=== PATIENT | female | born 1985 | race Caucasian/White ===

== ENCOUNTER → 2018-07-18 13:46 | Outpatient (CLI) | payer MEDICAID | END | disposition home or self-care (01) | LOC: D.LDO 13:46 | DX: O24.419 Gestational diabetes mellitus in pregnancy, unspecified control (principal); Z3A.35 35 weeks gestation of pregnancy ==

== ENCOUNTER → 2018-07-25 11:01 | Outpatient (CLI) | payer OTHER ==
[~2018-07-25 11:01] MED LIST: MOTRIN600 MG PO; PERCOCET 5/3251 TA1 PO; PRENATAL COMPLE1 TAB PO
== END | disposition home or self-care (01) ==
LOC: D.LDO 11:01
PROVIDERS: ATTEND Obstetrics & Gynecology
DX: O24.119 Pre-existing type 2 diabetes mellitus, in pregnancy, unspecified trimester (principal); Z3A.36 36 weeks gestation of pregnancy

== ENCOUNTER → 2018-08-01 12:41 | Outpatient (CLI) | payer OTHER | END | disposition home or self-care (01) | LOC: D.LDO 12:41 | PROVIDERS: ATTEND Obstetrics & Gynecology | DX: O26.893 Other specified pregnancy related conditions, third trimester (principal); Z3A.37 37 weeks gestation of pregnancy ==

== ENCOUNTER 2018-08-08 15:10 | Inpatient (IN) | payer OTHER ==
[~2018-08-08] VITALS: Ht 165.1 cm; Wt 92.5 kg
[2018-08-13 09:09] LABS: HEMATOCRIT 36.8 % (36.0-48.0); HEMOGLOBIN 12.7 g/dL (12-16); MCH 30.8 pg (26.0-34.0); MCHC 34.5 g/dL (31.0-37.0); MCV 89.1 fL (80.0-100.0); MEAN PLATELET VOLUME 9.8 fL (7.4-10.4); RBC 4.13 10x6/uL (4.00-5.40); RDW 13.5 % (11.5-14.5); WBC 12.7 10x3/uL (4.8-10.8)
[2018-08-13 09:18] LABS: APPEARANCE CLEAR (CLEAR); BILIRUBIN NEGATIVE (NEGATIVE); COLOR YELLOW (YELLOW); GLUCOSE NEGATIVE (NEGATIVE); KETONE NEGATIVE (NEGATIVE); NITRITE NEGATIVE (NEGATIVE); PROTEIN NEGATIVE (NEGATIVE); UROBILINOGEN NORMAL (NORMAL)
[2018-08-13] MEDS ORDERED: CLEOCIN HCL150 MG PO (09:18)
[2018-08-13] MEDS ORDERED: GLUCOPHAGE500 MG PO (09:19)
[2018-08-13 09:20] VITALS: BP 130/68; Ht 165.1 cm; Wt 92.5 kg
--- NOTE | 2018-08-13 14:31 | NUR ---
1426 VIABLE BABY BOY DELIVERED CORD BLOOD DONE AND TAKEN OUT, GINNY.
--- NOTE | 2018-08-13 15:56 | NUR ---
FUNDUS IS FIRM, MIDLINE 1-U. AMANDA PAD WITH MODERATE RUBRA LOCHIA NOTED, NO CLOTS PRESENT. WILL CONTINUE TO MONITOR.
[2018-08-13 17:00] VITALS: BP 126/57
--- NOTE | 2018-08-13 17:00 | NUR ---
REC'D PT BACK FROM RECOVERY POSTOP REPEAT . REPORT REC'D FROM RECOVERY NURSE AUREA NDIAYE. PT AA&O X 4. PAIN AND NEEDS ASSESSED. PT REPORTS ABD CRAMPING AND TENDERNESS THAT SHE RATES 6/1O. PLANS TO MEDICATE. PT HAS PIV TO RT WRIST W/18GAUGE. NS W/20 UNITS PITOCIN INFUSING VIA GRAVITY AT SLOW RATE. FLUID PLACED ON PUMP TO INFUSE AT 125ML/HR. ABD SOFT, NON DISTENDED, FUNDUS FIRM,U/1,MIDLINE. PINK PAD AND CHUX W/MODERATE TO LARGE LOCHIA NOTED FROM RECOVERY PERIOD. PINK PAD AND CHUX CHANGED. CURRENT PERIPAD W/MODERATE LOCHIA NOTED. PERICARE DONE AND CLEAN PADS PLACED. SCD WRAPS IN PLACE. CONNECTED TO PUMP. PUMP TURNED ON AND FUNCTIONING. CONTINUE POC DISCUSSED. PT VERBALIZES UNDERSTANDING AND AGREEABLE.
--- NOTE | 2018-08-13 17:04 | NUR ---
TORADOL 30MG SIVP GIVEN. CLEAN GOWN PLACED ON PT.
--- NOTE | 2018-08-13 17:15 | NUR ---
FUNDUS FIRM,U/1, SMALL RUBRA LOCHIA NOTED.ICE CAP TO ABD. SIG OTHER AT BEDSIDE. PT DENIES NEEDS.
--- NOTE | 2018-08-13 17:30 | NUR ---
FUNDUS FIRM,U/1,SMALL LOCHIA NOTED. NO PERIPAD CHANGE AT THIS TIME.
--- NOTE | 2018-08-13 18:00 | NUR ---
ADDITIONAL POST OP VITALS LOST DUE TO VITAL MACHINE NOT RETAINING RECORDINGS.
--- NOTE | 2018-08-13 18:00 | NUR ---
ROUNDS MADE. PAIN REASSESSED. PT REPORTS PAIN IS 4/10. FUNDUS FIRM,U/1,SMALL LOCHIA NOTED.
--- NOTE | 2018-08-13 18:54 | NUR ---
ROUNDS MADE. PT AA&O X4. PAIN AND NEEDS ASSESSED. PT REPORTS PAIN IS NOW 710. PAIN MEDICATION OFFERED. PT ACCEPTS, REQUEST ONLY 1MG AT THIS TIME. 1MG SIVP GIVEN. FUNDUS FIRM, U/1,SMALL LOCHIA NOTED. NO PERIPAD CHANGE AT THIS TIME.
--- NOTE | 2018-08-13 19:15 | NUR ---
REPORT GIVEN TO Nav RUIZ RN.
--- NOTE | 2018-08-13 19:45 | NUR ---
PM ROUNDS MADE, PT HOLDING , VISITING WITH FOB, INFORMED PT THAT I WILL RETURN SHORTLY TO DO ASSESSMENT, PT VERBALIZES UNDERSTANDING, DENIES NEEDS AT THIS TIME
[2018-08-13 20:10] VITALS: BP 118/53
--- NOTE | 2018-08-13 20:15 | NUR ---
ASSESSMENT PER FLOW SHEET, VS OBTAINED PER WALLY MONIQUE RN, IV IN RIGHT WRIST INTACT WITH NO REDNESS OR EDEMA INFUSINF NS WITH PITOCIN AT 125 ML/HR, FF, ML, U/1, MOD BLEEDING NOTED WITH NO CLOTS, AMANDA CARE DONE WITH WET WARM WASH CLOTHS, BLUE CHUX AND AMANDA PAD CHANGED, AURS[employer]IN[employer] INC WITH LARGE DRESSING CDI WITH NO DRAINAGE NOTED, FRESH ICE PACK TO ABD, NAZARIO CATH INTACT DRAINING DARK YELLOW URINE, PT ENC TO DRINK PLENTY OF FLUIDS, PT REPORTS "A LITTLE" FLATUS, SCD'S ON AND WORKING PROPERLY, DINNER TRAY REMOVED, DENIES NEEDS AT THIS TIME, FOB HOLDING INFANT AT THIS TIME
--- NOTE | 2018-08-13 21:05 | NUR ---
PT RESTING, FOB TAKES TO NSY VIA OPEN CRIB CART, PT DENIES NEEDS AT THIS TIME
--- NOTE | 2018-08-13 22:30 | NUR ---
PT HOLDING INFANT, C/O INC PAIN AND CRAMPING, INFORMED PT THAT I WILL BE BACK IN AROUND 2300 TO ADM TORADOL AND PAIN MED, PT VERBALIZES UNDERSTANDING, DENIES FURTHER NEEDS AT THIS TIME, FOB AT BEDSIDE
--- NOTE | 2018-08-13 23:17 | NUR ---
ADM TORADOL AND DILAUDID PER MD ORDERS, SEE EMAR, VS OBTAINED, AMANDA CARE DONE WITH WET WARM WASH CLOTHS, LITE BLEEDING NOTED WITH NO CLOTS, BLUE CHUX AND AMANDA PAD CHANGED, FRESH ICE PACK TO ABD, NAZARIO CATH EMPTIED, SCD'S CONTINUE ON AND WORKING PROPERLY, PT DENIES FURTHER NEEDS, FOB AND AT BEDSIDE
--- NOTE | 2018-08-13 23:31 | NUR ---
ADM MYLICON PER MD ORDERS, SEE EMAR
--- NOTE | 2018-08-14 00:32 | NUR ---
PT RESTING, RATES INC PAIN AND CRAMPING 3/, DENIES NEEDS AT THIS TIME, INFANT IN OPEN CRIB CART AND FOB AT BEDSIDE
--- NOTE | 2018-08-14 01:36 | NUR ---
PT RESTING, DENIES NEEDS AT THIS TIME, INFANT AND FOB AT BEDSIDE
--- NOTE | 2018-08-14 03:24 | NUR ---
FOB AT [employer] DEVELOPER ANALYST, REQUESTED AND PROVIDED INFANT HAT, PT RESTING, DENIES NEEDS AT THIS TIME, NSY NURSE IN ROOM AT THIS TIME
--- NOTE | 2018-08-14 04:34 | NUR ---
DILAUDID 2MG SLOW IVP PER PT REQUEST FOR 810 ABDOMINAL PAIN. SEE EMAR.
[2018-08-14 06:08] VITALS: BP 104/56
--- NOTE | 2018-08-14 06:08 | NUR ---
PT AWAKE, ADM TORADOL PER MD ORDERS, SEE EMAR, VS OBTAINED, I&O'S COLLECTED, AMANDA CARE DONE WITH WET WARM WASH CLOTHS, LITE-MOD BLEEDING NOTED WITH NO CLOTS, BLUE CHUX AND AMANDA PAD CHANGED, FRESH ICE PACK TO ABD, PT DENIES FURTHER NEEDS, FOB HOLDING
--- NOTE | 2018-08-14 06:45 | NUR ---
PT RESTING WITH EYES CLOSED, RESP QUIET, NO DISTRESS NOTED, LEFT UNDISTURBED AT THIS TIME, AND FOB IN ROOM
--- NOTE | 2018-08-14 07:00 | NUR ---
SHIFT REPORT TO DAY SHIFT
[2018-08-14 07:15] LABS: BASOPHILS 0.1 % (0-2); EOSINOPHILS 0.5 % (0-7); IMMATURE GRANULOCYTES 0.4 % (0-5); LYMPHOCYTES 16.3 % (15-50); MCH 30.6 pg (26.0-34.0); MCV 89.9 fL (80.0-100.0); MEAN PLATELET VOLUME 9.8 fL (7.4-10.4); MONOCYTES 9.8 % (2-11); NEUTROPHILS 72.9 % (40-80); PLATELET COUNT 230 10x3/uL (130-400); RDW 13.5 % (11.5-14.5); WBC 10.1 10x3/uL (4.8-10.8)
[2018-08-14 07:18] LABS: RAPID PLASMA REAGIN Non Reactive (Non Reactive)
[2018-08-14 07:19] LABS: HEMATOCRIT 29.4 % (36.0-48.0); RBC 3.27 10x6/uL (4.00-5.40)
--- NOTE | 2018-08-14 07:35 | NUR ---
dr. house to pts room, rounds made.
[2018-08-14 08:29] VITALS: BP 102/50
--- NOTE | 2018-08-14 08:30 | NUR ---
assessment completed. see flowsheet.
--- NOTE | 2018-08-14 08:35 | NUR ---
stephenson cath dc'd intact with 800 ml's yellow urine out. pericare done with warm wet washcloths, peripad/panties on. scd's removed. iv saline locked. medication adm record reviewed with pt. see emar for all meds adm by this rn. ice water served to pt. pt has regular breakfast tray. srup x2, cl/phone within reach. pt denies all other needs at this time.
--- NOTE | 2018-08-14 10:55 | OP ---
PATIENT NAME: WALLY JEFFERSON MEDICAL RECORD: [id number] :87 LOCATION:[id number] ADMISSION DATE:08/13/18 SURGEON: COLT ALMENDAREZ MD DATE OF OPERATION: 08/13/2018 PREOPERATIVE DIAGNOSES: 1. at 39 weeks. 2. History of prior section. 3. Unwanted fertility. POSTDELIVERY DIAGNOSES: 1. Mother delivered at 39 weeks. 2. History of prior section. 3. Unwanted fertility. PROCEDURES: 1. Repeat low transverse section. 2. tubal ligation using [place] technique. SURGEON: Colt Almendarez MD OIL WELL PERFORATOR OPERATOR: Monet Lomax ANESTHESIOLOGIST: Nick Oliveira MD ANESTHETIC: Spinal. FINDINGS: Viable male infant, vertex presentation, Apgars 9 and 9, weight 7 pounds 14 ounces. Unremarkable uterus, tubes, and ovaries bilaterally. SPECIMENS REMOVED: Placenta and tubes. SPECIMEN DISPOSITION: Tubes to pathology. Placenta discarded. ESTIMATED BLOOD LOSS: 700 cc. FLUIDS: 1300 cc of lactated Ringer's. URINE OUTPUT: 300 cc of clear urine. COMPLICATIONS: None. DRAINS: Hilton to gravity. INDICATIONS: The patient is a 32-year-old multiparous female with unwanted fertility. The patient has had a prior section and desires repeat. DESCRIPTION OF PROCEDURE: After informed consent was assured, the patient was taken to the operating room, where anesthetic was obtained. The patient was prepped and draped. After assessment of the anesthetic and found it to be adequate, an incision was made over the old scar and carried down to the underlying layer of the fascia, which was opened in the midline and the incision was extended out laterally. Rectus bellies were dissected free superiorly and inferiorly and then in the midline. The peritoneum was entered sharply and the peritoneal opening was extended with good visualization of the OPERATIVE REPORT [id number] WALLY JEFFERSON bladder. DeLee all-purpose retractor was inserted and a low transverse hysterotomy was performed. was delivered onto the abdomen atraumatically. The cord was doubly clamped and cut, and the infant was passed to the attendants. Cord blood sample was obtained and the placenta was delivered via Crede maneuver. Uterus was exteriorized, cleared of all clot and debris. Uterus was now closed with a running locked stitch of chromic. After this had been performed, posterior cul-de-sac was irrigated and irrigant was removed. Right tube was elevated. A window was developed on the antimesenteric portion and 2 ligatures were passed through this opening. They are secured proximally and distally and the intervening segment of tube was excised. The ostia was cauterized. This was repeated on the contralateral side. Again, a window was developed and 2 ligatures were passed through here. The ligatures were secured proximally and distally, and the intervening segment of tube was removed. The ostia was cauterized. The uterus was returned to the abdomen. Using a Ordonez retractor, the abdominal wall was elevated and both right and left tubal stumps were visualized with good hemostasis. Reinspection of the hysterotomy revealed adequate hemostasis. Rectus bellies were reapproximated in the midline with loose interrupted stitch of chromic. Fascia was closed with looped PDS. Subcutaneous tissue was irrigated. Bleeding vessel was cauterized and skin was reapproximated with a subcuticular stitch. Sterile dressing was applied. Sponge, lap, and needle counts were correct times 2. TRANSINT:[id number] Voice Confirmation ID: [id number] DOCUMENT ID: [id number] COLT ALMENDAREZ MD at 1055 CC: [id number] DICTATION DATE: 08/13/18 1505 COMPUTER CLERK: 08/13/18 1647 ADM IN [facility] [address] [id number]
--- NOTE | 2018-08-14 12:15 | NUR ---
pt wishes to get up to shower. assisted pt up, gait slow but steady. clean linens provided for shower. bed linens changed. pt has voided 800 mls into [place] hat. pt to shower now.
--- NOTE | 2018-08-14 12:45 | NUR ---
pt requests pain medication, see emar for all meds adm by this rn. pt is sitting up in bedside chair to eat lunch. pt's family at bedside.
--- NOTE | 2018-08-14 12:50 | NUR ---
warm blanket provided to neck/shoulders for comfort.
--- NOTE | 2018-08-14 13:46 | NUR ---
pt ambulatory in hallway, to nurses desk. pt continues to c/o neck pain and tightness, rating as 6/10, states "it feels like it is tight and throbbing, on both sides". pt requests more pain medication, message left for miguelito from [facility] to return my call.
--- NOTE | 2018-08-14 14:15 | NUR ---
dr. house calls to unit, report given to md of pt's c/o neck pain and tightness, and medications adm percocet 10 mg po at 1245. telephone order received to adm flexeril 10 mg po.
--- NOTE | 2018-08-14 15:00 | NUR ---
pt ambulatory to bathroom, voids 400 mls urine in [facility], with small amount of bright red bleeding noted in [facility]. pt denies heavy bleeding.
--- NOTE | 2018-08-14 16:21 | NUR ---
pt requests pain medication, see emar for meds adm. fresh ice pack placed over gown to incision. pt states "i can feel the muscle relaxer kicking in", my head is hurting, it's a little better, but when i walk, it feels a little better. srup x2, cl/phone within reach. family at bedside.
[2018-08-14 16:45] VITALS: BP 132/64
--- NOTE | 2018-08-14 16:45 | NUR ---
pt's family member to desk, states "we need your help in the room". to pt's bedside, and pt is sitting up on the side of bed, panicked, states "i am hurting, and don't know why, i feel like something is wrong". vital signs taken, bp 132/64, p97, o2 sat 99% room air, r 20, temp 98.6. pt states pain is in incisional area. pt to supine position for assessment. abdomen palpates soft, bladder non distended. lung sounds clear bilaterally. bowels sounds present x4. pt denies sob, nausea, or difficulty breathing. dressing removed from incision, which is intact, with steristrips in place, with scant amount of dark red blood, dry to middle of incision. as pt has been resting in supine position for 10 minutes, hob raised to 20 degrees. pt states "ok, i am starting to feel better now". pt states "it hurt when i got up to the bathroom, and it really started to hurt when i walked back to the bed. family members remain at bedside and request phone call be made to dr. house. phone call made to dr. house's cell, no answer. will attempt to call back, as emi from states "he is in a surgical case". pt stable at this time. srup x2, call light and phone within reach.
--- NOTE | 2018-08-14 19:04 | NUR ---
report given to rishi brown rn.
--- NOTE | 2018-08-14 19:22 | NUR ---
HARSHAD ASHTON RN IN ROOM TO ADM LAST DOSE OF TORADOL SIVP, SEE EMAR
--- NOTE | 2018-08-14 19:25 | NUR ---
SPOKE TO DR ALMENDAREZ, ORDERS TO CHANGE TORADOL IV TO MOTRIN 800MG Q8H, ORDERS READ BACK AND VERIFIED
[2018-08-14 20:15] VITALS: BP 115/59
--- NOTE | 2018-08-14 20:15 | NUR ---
ASSESSMENT PER FLOW SHEET, JOSE JUAN ULLOA, RN WAS IN ROOM ASSISTING PT TO BR AND BACK TO BED, SHE INFORMS ME THAT DEBBIE TONG RN IS TO TALK TO DR ALMENDAREZ ABOUT PT'S PAIN MED, PT VERBALIZES UNDERSTANDING, VS OBTAINED, FF, ML, U/2, PT REPORTS LITE-MOD BLEEDING WITH NO CLOTS AT THIS TIME, BIKINI INC WITH DERMABOND CDI WITH NO DRAINAGE NOTED, AMANDA PAD OVER INC FOR COMFORT AND MOISTURE CONTROL, PT DENIES FLATUS, NO BM AND VOIDING WITH NO DIFFICULTY, PT ENC TO AMB IN [place], INFORMED PT THAT I WILL ADM PAIN MED SOON WE RECEIVE A NEW ORDER FOR IT, PT VERBALIZES UNDERSTANDING, DENIES NEEDS, FEMALE FAMILY MEMBER HOLDING , FOB AND OTHER FAMILY IN ROOM
--- NOTE | 2018-08-14 20:50 | NUR ---
DR. ALMENDAREZ ON L&D AND INFORMED THAT PT. WAS COMPLAINING THAT PAIN WAS NOT CONTROL WITH PRESENT ORAL MED. STATES DILAUDID HAD WORKED BETTER FOR HER. MD STATES HE WILL ENTER ORDER.
--- NOTE | 2018-08-14 21:00 | NUR ---
INFORMED PT THAT DEBBIE TONG, RN SPOKE TO DR ALMENDAREZ ABOUT PAIN MED, AND SOON DR ALMENDAREZ PUTS ORDER IN, I WILL ADM IT, PT VERBALIZES UNDERSTANDING, PT HOLDING HOLDING INFANT, FOB AT BEDSIDE
--- NOTE | 2018-08-14 21:31 | NUR ---
PT CONTINUES HOLDING , ADM DILAUDID PO PER MD ORDERS, SEE EMAR, PT DENIES FURTHER NEEDS, FOB AT BEDSIDE, TRASH REMOVED
--- NOTE | 2018-08-14 22:22 | NUR ---
PT SITTING UP IN CHAIR, HOLDING , REPORTS PAIN IS STILL THE SAME, BUT STATES "I FEEL LIKE IT IS GETTING BETTER", PT DENIES NEEDS AT THIS TIME, FOB IN ROOM
--- NOTE | 2018-08-14 22:45 | NUR ---
DR ALMENDAREZ ON L&D UNIT, VERBAL ORDER FOR VS ORDERS CHANGED TO Q8H
--- NOTE | 2018-08-15 00:25 | NUR ---
ROUNDS MADE, PT GETTING READY TO GET UP TO BR, INFORMED PT THAT I WILL BRING PAIN MED WHEN DUE, PT VERBALIZES UNDERSTANDING, FOB ASSISTING PT, INFANT IN OPEN CRIB CART
--- NOTE | 2018-08-15 00:35 | NUR ---
ANASTASIIA SMITH RN TAKING OVER CARE OF PT, REPORT PROVIDED, THIS RN AND ANASTASIIA SMITH RN TO ROOM, PT INFORMED THAT ANASTASIIA SMITH RN WILL BE HER NURSE FOR THE REST OF THE EVENING
--- NOTE | 2018-08-15 03:20 | NUR ---
pt medicated for gas at thsi time. vamsi trejo rn
--- NOTE | 2018-08-15 07:11 | NUR ---
THIS RN AND Nav SMITH RN TO BEDSIDE FOR BEDSIDE SHIFT REPORT. PT AA&O X 4 SITTING UP IN CHAIR. PAIN AND NEEDS ASSESSED. PT REPORTS PAIN 3-4/10. DENIES NEEDING ADDITIONAL PAIN INTERVENTIONS AT THIS TIME. BREAKFAST TRAY AT BEDSIDE. PT INSTRUCED TO CALL THIS RN ONCE SHE HAS EATEN HER BREAKFAST AND THIS RN WILL RETURN TO BEDSIDE FOR SHIFT ASSESSMENT. ONLY NEED VOICED IS A SPOON. SPOON PROVIDED. FOB SLEEPING ON SOFA.
--- NOTE | 2018-08-15 08:13 | NUR ---
ROUNDS MADE. PT REMAINS IN CHAIR CURRENTLY CONSUMING HER BREAKFAST TRAY. DENIES NEEDS. PT AGREES TO CALL OUT WHENS HE HAS COMPLETED HER BREAKFAST.
[2018-08-15 08:30] VITALS: BP 114/57
--- NOTE | 2018-08-15 10:00 | NUR ---
REPORT GIVEN TO Nav RUIZ RN TO ASSUME CARE FOR DISCHARGE.
[2018-08-15] MEDS ORDERED: DILAUDID2 MG PO (11:52)
[2018-08-15] MEDS ORDERED: MOBIC7.5 MG PO ×2 (11:52→11:54)
--- NOTE | 2018-08-15 12:45 | NUR ---
IV SALINE LOCK REMOVED WITH CATH TIP INTACT- PRESSURE HELD AND BANDAIDE APPLIED. DISCHARGE INST VERBAL AND WRITTEN GIVEN. PRESCRIPTIONS X 2 WITH PT MED REC AND DRUG DATA INFO GIVEN. PT HEALTH SUMMARY GIVEN.SEE PT INST SIGN PAGE FOR INST GIVEN. AWHONN POST WARNING PAGE GIVEN AND GONE OVER WITH PT.
--- NOTE | 2018-08-15 12:55 | NUR ---
ADM KAIRIN PER MD ORDERS, SEE EMAR, PT AND FOB GETTING BELONGINGS READY FOR DISCHARGE
--- NOTE | 2018-08-15 13:45 | NUR ---
requesting pain medication before goes home. rates pain a 7 on scale of 0-10. states pain lower back "bad cramps"
--- NOTE | 2018-08-15 14:10 | NUR ---
DISCHARGED HOME WITH . TO AUTO VIA W/C.
== END 2018-08-15 14:10 | disposition home or self-care (01) | DRG 785 ==
LOC: D.LD 08-13 08:39
PROVIDERS: ADMIT Obstetrics & Gynecology; ATTEND Obstetrics & Gynecology
PROC: 10D00Z1 Extraction of Products of Conception, Low, Open Approach (ICD-10-PCS; principal; 2018-08-13 10:00)
PROC: 0UL70ZZ Occlusion of Bilateral Fallopian Tubes, Open Approach (ICD-10-PCS; 2018-08-13 10:00)
DX: O34.211 Maternal care for low transverse scar from previous cesarean delivery (principal); Z30.2 Encounter for sterilization; O99.334 Smoking (tobacco) complicating childbirth; Z3A.39 39 weeks gestation of pregnancy; Z37.0 Single live birth

== ENCOUNTER → 2018-08-08 16:52 | Outpatient (CLI) | payer OTHER ==
[~2018-08-08 16:52] MED LIST changes: +CLEOCIN HCL150 MG PO; +DILAUDID2 MG PO; +GLUCOPHAGE500 MG PO; +MOBIC7.5 MG PO
[2018-08-13 09:20] VITALS: BMI 34.0
== END | disposition home or self-care (01) ==
LOC: D.LDO 16:52
PROVIDERS: ATTEND Obstetrics & Gynecology
DX: O26.893 Other specified pregnancy related conditions, third trimester (principal); Z3A.38 38 weeks gestation of pregnancy